=== PATIENT | female | born 1980 | race Caucasian/White ===

== ENCOUNTER 2025-11-02 08:52 | Outpatient (REF) | payer OTHER, SELFPAY ==
[2025-11-02 11:25] LABS: MANUAL DIFF FLAG NO
[2025-11-02 11:42] LABS: Hematocrit 42.5 % (37.0-47.0); Hemoglobin 13.2 g/dl (12.0-16.0); Imm Gran Abs Auto 0.02 X10*3/uL (0.00-0.03); Imm Gran Pct Auto 0.3 % (0.0-0.4); Lymphocytes Absolute Auto 1.5 X10*3/uL (1.2-4.9); Mean Corpuscular HGB Conc 31.1 g/dl (31.0-35.0); Mean Corpuscular Hemoglobin 24.8 pg (27.0-33.0); Mean Corpuscular Volume 79.9 fL (80.0-98.0); NRBC Abs Auto 0.000 X10*3/uL (0.0-0.012); NRBC Pct Auto 0.0 /100WBC (0.0-0.2); Platelet Count 352 X10*3/uL (160-400); Red Blood Count 5.32 X10*6/uL (4.20-5.50); White Blood Count 6.4 X10*3/uL (4.8-10.8)
[2025-11-02 12:26] LABS: Alanine Aminotransferase 24 U/L (0-31); Albumin Level 4.4 g/dL (3.5-5.0); Alkaline Phosphatase 88 U/L (39-117); Anion Gap 11 (12-20); Aspartate Amino Transferase 24 U/L (5-31); Blood Urea Nitrogen 12 mg/dL (9-16); Calcium 8.9 mg/dL (8.4-10.2); Carbon Dioxide 26 mmol/L (22-29); Chloride 108 mmol/L (96-108); Cholesterol 175 mg/dL (<200); Estimated Glomerular Filt Rate > 60; HDL Cholesterol 60 mg/dL (>40); Potassium 4.5 mmol/L (3.3-5.1); Sodium 140 mmol/L (135-145); Total Protein 7.5 g/dL (6.5-8.0); Triglycerides 65 mg/dL (<150)
== END 2025-11-02 08:53 | disposition home or self-care (01) ==
LOC: HO.HHCL 08:52
PROVIDERS: PCP Internal Medicine Geriatric Medicine; Visit Provider Internal Medicine Geriatric Medicine
DX: R53.83 Other fatigue (principal); Z13.1 Encounter for screening for diabetes mellitus; Z13.220 Encounter for screening for lipoid disorders
CPT/HCPCS: 36415; 80053; 80061; 82306; 84443; 85025

== ENCOUNTER 2025-11-27 11:28 | Outpatient (REF) | payer OTHER, SELFPAY ==
--- NOTE | ~2025-11-27 | XR_ITS ---
EXAMINATION: XR CALCANEUS, LEFT CLINICAL INFORMATION: Left heel pain x1 month, atraumatic. COMPARISON: None available. TECHNIQUE: Lateral and axial views of the left calcaneus were obtained. FINDINGS: No fracture, dislocation, or suspicious bone lesion. Calcaneus is intact. The subtalar joints are normal in appearance. There is a small dorsal calcaneal spur. There are no soft tissue abnormalities. XR/XR calcaneus LT min 2V IMPRESSION: No acute findings left calcaneus. Small dorsal spur. Electronically signed by: Sebastian Skinner MD 11/27/2025 01:14 PM [facility]
--- OUTSIDE RECORDS SUMMARY | 2025-11-27 10:00 | XMS_ITS | Encounter Summary ---
Author Organization [employer] Address [address] [place] [address] 7 [place] [address] Care Team Providers Care Pipe Organ Builder Name Role Phone Name, Kashmir MIR Primary Care Provider [phone] Reason for Referral * Consultation (Routine) - Pending Review Specialty Diagnoses / Procedures Referred By Trey walters Referred To Contact Orthopaedic Surgery Diagnoses Pain of left heel Tera Snyder MD [address] [place] [address] Phone: tel: fax: Referral ID Status Reason Start Date Expiration Date Visits Requested Visits Authorized [id number] Pending Review Specialty Services Required 11/27/2026 1 1 Reason for Visit * Reason Comments Earache Encounter Details Date Type Department Care Team (Late st Contact Info) Description 11/27/2025 10:00 AM EST Office Visit [facility] [address] [place], [place] [id number] Impacted cerumen of right ear (Primary Dx); Elevated blood pressure reading in office without diagnosis of hypertension; Pain of left heel Social History Tobacco Use Types Packs/Day Years Used Date Smoking Tobacco: Never Passive Smoke Exposure: Never Smokeless Tobacco: Never Tobacco Cessation:Counseling Given: Not Answered Alcohol Answer Date Recorded How often do you have a drink containing alcohol ? 0 11/01/2025 Average Number of Drinks Not on file 025 How often do you have six or more drinks on one occasion? 0 11/01/2025 Depression Answer Date Recorded Patient Health Questionnaire-9 Score 3 11/01/2025 Patient Health Questionnaire-9 Score 3 11/01/2025 Last PHQ-9: Questionnaire Data Not on file 1 01/02/2025 Housing Stability Answer Date Recorded What is your housing situation today? I have housing today, but I am worried about losing housing in the future 11/01/[address] you li ve. Do you have problems with any of the following? None of the above 11/01/2025 Food Insecurity Answer Date Recorded Within the past 12 months, y ou worried that your food would run out before you got money to buy more: Sometimes True 2024 Within the past 12 months,th e food you bought just didn't last and you didn't have enough money to get more: Sometimes True 11/01/2025 Transportation Answer Date Recorded In the past 12 months, has l ack of transportation kept you from medical appts, meetings, work or from getting things needed for daily living? No 11/01/2025 Utilities Answer Date Recorded In the past 12 months, has t he electric, gas, oil or water company threatened to shut off services in your home? No 11/01/2025 Depression Answer Date Recorded Patient Health Questionnaire-2 Score 1 11/01/2025 Internet Access Answer Date Recorded Internet Access Q1 No 11/01/2025 Internet Access Q2 I cannot afford it 11/01/2025 Comments Unknown Sex and Gender Information Value Date Recorded Sex Assigned at Female 08/14/2025 12:02 PM EDT Legal Sex Female 2:00 PM EDT Gender Identity Female 08/14/2025 12:02 PM EDT Sexual Orientation Straight 08/14/2025 12 :02 PM EDT documented as of this encounter Last Filed Vital Signs Vital Sign Reading Time Taken Comments Blood Pressure 141/96 11/27/2025 10:05 AM EST Pulse 87 11/27/2025 10:05 AM EST Temperature 36.6 C (97.9 F) 11/27/2025 10:05 AM EST Respiratory Rate 16 11/27/2025 10:05 AM EST Oxygen Saturation 100% 11/27/2025 10:05 AM EST Inhaled Oxygen Concentration - - Weight 81.2 kg (179 lb) 11/27/2025 10:05 AM EST Height - - Body Mass Index 31.52 11/01/2025 10:51 AM EST documented in this encounter Plan of Treatment Upcoming Encounters Date Type Department Care Team (Late st Contact Info) Description 12/07/2025 9:30 AM EST Clinical Support [facility] [address] [place] [address] Scheduled Orders Name Type Priority Associated Diagnoses Orde r Schedule XR heel LT min 2V Imaging Routine Pain of left heel Expected: 11/27/2025, Expires: 11/27/2026 Ear Cerumen Removal Procedures Routine Impacted cerumen of right ear Ordered: 11/27/2025 Scheduled Referrals Name Type Priority Associated Diagnoses Order Schedule Referral to Orthopaedic Surgery Outpatient Referral Routine Pain of left heel Expected: 11/27/2025 (Approximate), Expires: 11/27/2026 documented as of this encounter Visit Diagnoses Diagnosis Impacted cerumen of right ear- Primary Impacted cerumen Elevated blood pressure reading in office without diagnosis of hypertension Pain of left heel documented in this encounter Additional Health Concerns Assessment Noted Time PHQ-9 Depression Total Score: 3 11/01/20 11:01 AM EST documented as of this encounter Care Teams Pipe Organ Builder Relationship Specialty Start Date End Date Name, MD Kashmir [address] [place] [address] PCP - General Internal Medicine 10/20/25 documented as of this encounter
--- OUTSIDE RECORDS SUMMARY | 2025-11-27 15:33 | XMS_ITS | Encounter Summary ---
Author Organization [employer] Address [address] [facility] [address] [place] [address] Care Team Providers Care Photography Manager Name Role Phone Name, Kashmir MIR Primary Care Provider [phone] Encounter Details Date Type Department Care Team ([facility] st Contact Info) Description 11/27/2025 Orders Only [facility] [address] [place] [address] Tera Mo MD [address] [place] [address] Social History Tobacco Use Types Packs/Day Years Used Date Smoking Tobacco: Never Passive Smoke Exposure: Never Smokeless Tobacco: Never Alcohol Answer Date Recorded How often do [...] PM EDT documented as of this encounter Plan of Treatment Upcoming Encounters Date Type Department Care Team (Late st Contact Info) Description 12/07/2025 9:30 AM EST Clinical Support [facility] [address] [place] [phone] documented as of this encounter Procedures Procedure Name Priority Date/Time Associated Diagnosis Comments XR CALCANEUS 2 VIEWS LEFT Routine 11/27/2025 12:09 PM EST documented in this encounter Results * XR Calcaneus 2 Views Left (11/27/2025 12:09 PM EST) Anatomical Region Laterality Modality Lower Extremities, Calcaneus Left Rad iographic Imaging 11/27/2025 12:0 9 PM EST Narrative 11/27/2025 1:17 PM EST [address] [address] XRay Report Signed Patient: Ayleen Wilson MR #: [id number] : 1980 Acct:[id number] Age/Sex: 45 / F ADM Date: 11/27/25 [facility] Att[facility] Dr: Tera Mo MD Ordering Physician: TERA MO MD Date of Service: 11/27/25 Procedure(s): XR calcaneus LT min 2V Accession Number(s): [id number] cc: TERA MO MD; Name,Kashmir MIR Reason for Exam: PAIN EXAMINATION: XR CALCANEUS, LEFT CLINICAL INFORMATION: Left heel pain x1 month, atraumatic. COMPARISON: None available. TECHNIQUE: Lateral and axial views of the left calcaneus were obtained. FINDINGS: No fracture, dislocation, or suspicious bone lesion. Calcaneus is intact. The subtalar joints are normal in appearance. There is a small dorsal calcaneal spur. There are no soft tissue abnormalities. XR/XR calcaneus LT min 2V IMPRESSION: No acute findings left calcaneus. Small dorsal spur. Electronically signed by: Sebastian Skinner MD 11/27/2025 01:14 PM [facility] Dictated By: Sebastian Skinner MD Signed By: <Electronically signed by Sebastian Skinner MD in OV> 11/27/25 1314 DD/ 1209 TD/TT: 11/27/25 1215 Mining Machinery Assembler: Procedure Note Donotuseinterpreter, Image - 11/27/2025 [place] [address] XRay Report Signed Patient: Ayleen WilsonMR #: [id number] : 1980Acct:[id number] Age/Sex: 45 / FADM Date: 11/27/25 Loc: HO.[facility] Attending Dr: Tera Mo MD Ordering Physician: TERA MO MD Date of Service: 11/27/25 Procedure(s): XR calcaneus LT min 2V Accession Number(s): [id number] cc: TERA MO MD; Name,Kashmir MIR Reason for Exam: PAIN EXAMINATION: XR CALCANEUS, LEFT CLINICAL INFORMATION: Left heel pain x1 month, atraumatic. COMPARISON: None available. TECHNIQUE: Lateral and axial views of the left calcaneus were obtained. FINDINGS: No fracture, dislocation, or suspicious bone lesion. Calcaneus is intact. The subtalar joints are normal in appearance. There is a small dorsal calcaneal spur. There are no soft tissue abnormalities. XR/XR calcaneus LT min 2V IMPRESSION: No acute findings left calcaneus. Small dorsal spur. Electronically signed by: Sebastian Skinner MD 11/27/2025 01:14 PM EST Dictated By: Sebastian Skinner MD Signed By: <Electronically signed by Sebastian Skinner MD in OV> 11/27/25 1314 DD/ 1209 TD/TT: 11/27/25 1215 Mining Machinery Assembler: Tera Mo MD IMG XR PROCEDURES Final Result documented in this encounter Visit Diagnoses Not on filedocumented in this encounter Additional Health Concerns Assessment Noted Time PHQ-9 Depression Total Score: 3 11/01/20 25 11:01 AM EST documented as of this encounter Care Teams Photography Manager Relationship Specialty Start Date End Date Name, MD Kashmir [address] [place] [id number] PCP - General Internal Medicine 10/20/25 documented as of this encounter
--- OUTSIDE RECORDS SUMMARY | 2025-11-27 15:33 | XMS_ITS | Clinical Summary ---
Author Organization [employer] Address [address] [place] [address] 7 [place] [address] Care Team Providers Care Tar Roofer Name Role Phone Name, Kashmir MIR Primary Care Provider [phone] Allergies Active Allergy Reactions Criticality Noted Date Comments Ciprofloxacin 11/01/2025 tachycardia Cefadroxil 11/01/2025 rash Medications naproxen (Naprosyn) 500 MG tablet Take 1 tablet (500 mg) by mouth if needed in the morning and at bedtime for mild pain. 60 tablet 11/02/2025 9:18 AM EST 5 12/02/19 26 Active acetaminophen (Tylenol) 500 MG tablet Take 2 tablets (1,000 mg) by mouth every 6 (six) hours if needed for moderate pain or fever for up to 25 doses. 50 tablet 11/27/2025 12:49 PM EST 5 Active ibuprofen 400 MG tablet Take 1 tablet (400 mg) by mouth every 6 (six) hours if needed for moderate pain or fever for up to 30 doses. 30 tablet 11/27/2025 12:49 PM EST 5 Active Blood Pressure kit 1 each 2 times daily. 1 kit 5 11/27/20 26 Active carbamide peroxide (Debrox) 6.5 % otic solution Administer 5 drops into the right ear 2 times daily for 4 days. 15 mL 11/27/2025 12:49 PM EST 5 12/27/19 26 Active Active Problems No known active problems Encounters Date Type Department Care Team Description 11/27/2025 10:00 AM EST Office Visit [facility] [address] [place] [address] Impacted cerumen of right ear (Primary Dx); Elevated blood pressure reading in office without diagnosis of hypertension; Pain of left heel 11/27/2025 Orders Only [facility] [address] [place] [address] Tera Mo MD 11/27/2025 Travel 11/19/[address] [address] Kashmir Cordova MD Referral 11/01/2025 10:45 AM EST Office Visit [address] [address] Kashmir Cordova MD Lack of energy (Primary Dx); Chronic bilateral low back pain without sciatica; Screening for cervical cancer; History of abnormal cervical Pap smear; History of myomectomy; Screening for diabetes mellitus; Screening for cholesterol level; Encounter for screening for malignant neoplasm of breast, unspecified screening modality; Screening for colon cancer 11/01/[address] [address] Kashmir Cordova MD REQUEST [facility] FOR EYE EXAM 11/01/2025 Travel 10/30/[address] [address] Kashmir Cordova MD Chart Prep 10/22/2025 Patient Outreach [facility] [address] [place], [place] [phone] Kashmir Cordova MD Pre-visit Planning ([facility] unable to reach [facility]) from Last 3 Months Immunizations Immunization Administration Dates Next Due Tdap 11/01/2025 Family History Medical History Relation Name Comments back pain Brother No Known Problems Father No Known Problems Mother No Known Problems Sister Relation Name Status Comments Brother Father Mother Sister Social History Tobacco Use Types Packs/Day Years [...] Orientation Straight 08/14/2025 12 :02 PM EDT Last Filed Vital Signs Vital Sign Reading Time Taken Comments Blood Pressure 141/96 11/27/2025 10:05 AM EST Pulse 87 11/27/2025 10:05 AM EST Temperature 36.6 C (97.9 F) 11/27/2025 10:05 AM EST Respiratory Rate 16 11/27/2025 10:05 AM EST Oxygen Saturation 100% 11/27/2025 10:05 AM EST Inhaled Oxygen Concentration - - Weight 81.2 kg (179 lb) 11/27/2025 10:05 AM EST Height 160.5 cm (5' 3.19 ) 11/01/2025 10:[address] Body Mass Index 31.52 11/01/2025 10:51 AM EST Plan of Treatment Upcoming Encounters Date Type Department Care Team (Late st Contact Info) Description 12/07/2025 9:30 AM EST Clinical Support [facility] [address] [place] [address] Health Maintenance Due Date Last Done Comments CT Colonography 1980 Colonoscopy 1980 FIT 1980 HIV Screening 1980 Sigmoidoscopy 1980 Family Planning (PISQ) 02/19/1995 HPV Vaccines (1 - 3-dose series) 02/19/1995 Hepatitis C Screening 02/19/1998 Hepatitis B Vaccines (1 of 3 - 19+ 3-dose series) 02/19/1999 Pap Smear 02/19/2001 Cervical Cancer Screening 02/19/2010 HPV/Cotest 02/19/2010 Mammogram 2020 COVID-19 Vaccine ( - 2024-2 6 season) 2025 Influenza Vaccine (#1) 2025 01/27/2025 Alcohol/Substance Use Screening 11/01/2026 11/01/2025 Depression Screening 11/01/2026 11/01/2025, 11/01/2025 Disability Screening 11/01/2026 11/01/2025 SDOH Screening 11/01/2026 11/01/2025 FOBT 11/12/2026 11/12/2025 Tobacco Screening 11/27/2026 11/27/2025 Colorectal Cancer Screening 11/12/2028 FIT DNA/Cologuard 11/12/2028 11/12/2025 Zoster Vaccines (1 of 2) 02/19/2030 DTaP/Tdap/Td Vaccines (2 - T d or Tdap) 11/01/2035 11/01/2025 RSV Patients and Patients Aged 60 years or older (1 - 1-dose 75+ series) 02/19/2055 HIB Vaccines Aged Out No longer eligi ble based on patient's age to complete this topic Hepatitis A Vaccines Aged Out No long er eligible based on patient's age to complete this topic IPV Vaccines Aged Out No longer eligi ble based on patient's age to complete this topic Meningococcal B Vaccine Aged Out No l onger eligible based on patient's age to complete this topic Meningococcal Vaccine Aged Out No diamante malinda eligible based on patient's age to complete this topic Pneumococcal Vaccine: Pediatrics (0 to 5 Years) and At-Risk Patients (6 to 49) Years Aged Out No longer eligible b ased on patient's age to complete this topic RSV under 20 months Aged Out No longe r eligible based on patient's age to complete this topic Rotavirus Vaccines Aged Out No longer eligible based on patient's age to complete this topic Procedures Procedure Name Priority Date/Time Associated Diagnosis Comments XR CALCANEUS 2 VIEWS LEFT Routine 11/27/2025 12:09 PM EST LAB COLOGUARD COLON CANCER SCREEN Routine 11/12/2025 10:25 AM EST Screening for colon cancer VITAMIN D,25-OH,TOTAL,IA Routine 11/02/2025 9:00 AM EST Lack of energy TSH W/REFLEX TO FT4 Routine 11/02/2025 9 :00 AM EST Lack of energy LIPID PANEL, STANDARD Routine 11/02/2025 9:00 AM EST Screening for cholesterol level COMPREHENSIVE METABOLIC PANEL Routine 11/02/2025 9:00 AM EST Screening for diabetes mellitus Lack of energy CBC WITH AUTO DIFFERENTIAL Routine 11/02/2025 9:00 AM EST Lack of energy from Last 3 Months Results * XR Calcaneus 2 Views Left (11/27/2025 12:09 PM EST) Anatomical Region Laterality Modality Lower Extremities, Calcaneus Left Rad iographic Imaging 11/27/2025 12:0 9 PM EST Narrative 11/27/2025 1:17 PM EST [address] [place] [address] XRay Report Signed Patient: Ayleen Yu MR #: [id number] : 1980 Acct:[id number] Age/Sex: 45 / F ADM Date: 11/27/25 Loc: [facility]HCX Attending Dr: Tera Mo MD Ordering Physician: TERA MO MD Date of Service: 11/27/25 Procedure(s): XR calcaneus LT min 2V Accession Number(s): [id number] cc: TERA MO MD; Name,Kashmir MIR Reason [...] by: Sebastian Skinner MD 11/27/2025 01:[address] [facility] Dictated By: Sebastian Skinner MD Signed By: <Electronically signed by Sebastian Skinner MD in OV> 11/27/25 1314 DD/ 1209 TD/TT: 11/27/25 1215 Mirror Silverer: Procedure Note Donotuseinterpreter, Image - 11/27/2025 [place] [address] XRay Report Signed Patient: Ayleen YuMR #: [id number] : 1980Acct:[id number] Age/Sex: 45 / FADM Date: 11/27/25 Loc: [facility].HHCX Attending Dr: Tera Mo MD Ordering Physician: TERA MO MD Date of Service: 11/27/25 Procedure(s): XR calcaneus LT min 2V Accession Number(s): [id number] cc: TERA MO MD; Name,Kashmir MIR Reason [...] MD 11/27/2025 01:14 PM EST Dictated By: Sebastain Skinner MD Signed By: <Electronically signed by Sebastian Skinner MD in OV> 11/27/25 1314 DD/ 1209 TD/TT: 11/27/25 1215 Mirror Silverer: Tera Mo MD IMG XR PROCEDURES Final Result * Cologuard?? colon cancer screening (11/12/2025 10:25 AM EST) Cologuard Result Negative Negative 11/17/20 11:54 AM EST [facility] (CLIA #:[id number]) Comment: The Cologuard (TM) test was performed on this specimen. NEGATIVE TEST RESULT. A negative Cologuard result indicates a low likelihood that a colorectal cancer (CRC) or advanced adenoma (adenomatous polyps with more advanced pre-malignant features) is present. The chance that a person with a negative Cologuard test has a colorectal cancer is less than 1 in 1500 (negative predictive value >99.9%) or has an advanced adenoma is less than 5.3% (negative predictive value 94.7%). These data are based on a prospective cross-sectional study of 10,000 individuals at average risk for colorectal cancer who were screened with both Cologuard and colonoscopy. (Cindi Valenzuela et al, N Engl J Med 2014;370(14):1286- 1297) The normal value (reference range) for this assay is negative. COLOGUARD RE-SCREENING RECOMMENDATION: Periodic colorectal cancer screening is an important part of preventive healthcare for asymptomatic individuals at average risk for colorectal cancer. Following a negative Cologuard result, the [place] [employer] and U.S. Multi-Society Task Force screening guidelines recommend a Cologuard re-screening interval of 3 years. References: [place] [employer] Guideline for Colorectal Cancer Screening: https://www.cancer.org/cancer/liede-vcdera-trfivp/tobimexjw-hzcqjdsiq-dypxjiv/ac s-rec ommendations.html.; Malcolm GHOTRA, Danyell MADRID, Tomas XIAO, Colorectal Cancer Screening: Recommendations for Physicians and Patients from the U.S. Multi-Society Task Force on Colorectal Cancer Screening , Am J Gastroenterology 2017; 112:4712-6071. TEST DESCRIPTION: Composite algorithmic analysis of stool DNA-biomarkers with hemoglobin immunoassay. Quantitative values of individual biomarkers are not reportable and are not associated with individual biomarker result reference ranges. Cologuard is intended for colorectal cancer screening of adults of either sex, 45 years or older, who are at average-risk for colorectal cancer (CRC). Cologuard has been approved for use by the U.S. FDA. The performance of Cologuard was established in a cross sectional study of average-risk adults aged 50-84. Cologuard performance in patients ages 45 to 49 years was estimated by sub-group analysis of near-age groups. Colonoscopies performed for a positive result may find as the most clinically significant lesion: colorectal cancer [4.0%], advanced adenoma (including sessile serrated polyps greater than or equal to 1cm diameter) [20%] or non- advanced adenoma [31%]; or no colorectal neoplasia [45%]. These estimates are derived from a prospective cross-sectional screening study of 10,000 individuals at average risk for colorectal cancer who were screened with both Cologuard and colonoscopy. (Cindi Ayala al, N Engl J Med 2014;370(14):1641-8954.) Cologuard may produce a false negative or false positive result (no colorectal cancer or precancerous polyp present at colonoscopy follow up). A negative Cologuard test result does not guarantee the absence of CRC or advanced adenoma (pre-cancer). The current Cologuard screening interval is every 3 years. ([place] [employer] and U.S. Multi-Society Task Force). Cologuard performance data in a 10,000 patient pivotal study using colonoscopy as the reference method can be accessed at the following location: www.exactlabs.com/results. Additional description of the Cologuard test process, warnings and precautions can be found at www.cologuard.com. Stool specimen (specimen) 11/12/2025 10:25 AM EST 11/13/2025 9:19 AM EST us Kashmir Cordova MD LAB MOLECULAR DIAGNOSTICS ORDERA BLES Final Result [facility] (CLIA #:[id number]) [address] [place] [address], * (ABNORMAL) Vitamin D, 25-Hydroxy, Total, Immunoassay (11/02/2025 9:00 AM EST) Vitamin D 25-OH Total 25.8(L) >30 ng/mL [facility] Comment: Health Based Reference Values*< 20 ng/mL Ytfjwtywj39-26 ng/mL Insufficient> 30 ng/mL Sufficient*Ric WARD. N Engl J Med. 2007;357:266-280There is no well-established upper level of normal vitamin Dlevels. Some laboratories use 50 ng/mL as an upper limit ofnormal. However, toxicity is patient-dependent and may occurat any level. Careful correlation with the patient'spresentation is necessary and, if there is concern forvitamin D toxicity, treatment should be consideredirrespective of the serum level.Care must be taken in interpreting Vitamin D results fromdifferent laboratories and methodologies. Published datademonstrated that results from patients undergoinghemodialysis may show a negative bias when tested withvarious automated 25-OH vitamin D assays when compared toLC-MS/MS.When testing samples from patients whose predominant form ofVitamin D is Vitamin D2, such as patients receiving VitaminD2 supplementation, results that are subtherapeutic shouldbe confirmed with another method such as LC-MS/MS. Blood Venous blood specimen / Unknown 11/02/2025 9:00 AM EST 11/02/2025 11:12 AM EST us Kashmir Cordova MD LAB BLOOD ORDERABLES Final Resul t Performing Organization Address City/[facility]/ZIP Co de Phone Number [facility] [address] [place] [address] [phone] * TSH W/Reflex to FT4 (11/02/2025 9:00 AM EST) Pathologist [facility] [place] TSH reflex Free T4 1.31 0.32 - 4.0 uIU/mL [facility] Blood Venous blood specimen / Unknown 11/02/2025 9:00 AM EST 11/02/2025 11:12 AM EST us Kashmir Name LAB BLOOD ORDERABLES Final Resul t Performing Organization Address [facility] Co de Phone Number [facility] [address] [place] [phone] * (ABNORMAL) CBC auto differential (11/02/2025 9:00 AM EST) [facility] White Blood Count 6.4 4.8 - 10.8 X10*3/uL [facility] Red Blood Count 5.32 4.20 - 5.50 X10*6/uL [facility] Hemoglobin 13.2 12.0 - 16.0 g/dl [facility] Hematocrit 42.5 37.0 - 47.0 % [facility] Mean Corpuscular Volume 79.9(L) 80.0 - 98.0 fL [facility] Mean Corpuscular Hemoglobin 24.8(L) 27.0 - 33.0 pg [facility] Mean Corpuscular HGB Conc 31.1 31.0 - 35.0 g/dl [facility] Red Cell Distribution Width 14.3 11.0 - 16.0 % [facility] Platelet Count 352 160 - 400 X10*3/uL [facility] Mean Platelet Volume 10.4 9.4 - 12.3 fL [facility] Neutrophils Percent Auto 65.9 45 - 73 % [facility] Imm Gran Pct Auto 0.3 0.0 - 0.4 % [facility] Lymphocytes Percent Auto 23.7 20 - 40 % [facility] Monocytes Percent Auto 7.5 2 - 11 % [facility] Eosinophils Percent Auto 2.0 0 - 4 % [facility] Basophils Percent Auto 0.6 0 - 2 % [facility] NRBC Pct Auto 0.0 0.0 - 0.2 /100WBC [facility] Neutrophils Absolute Auto 4.2 2.0 - 8.3 x10*3/uL [facility] Imm Gran Abs Auto 0.02 0.00 - 0.03 X10*3/uL [facility] Lymphocytes Absolute Auto 1.5 1.2 - 4.9 X10*3/uL [facility] Monocytes Absolute Auto 0.5 0.1 - 1.2 X10*3/uL [facility] Eosinophils Absolute Auto 0.1 0.0 - 0.4 X10*3/uL [facility] Basophils Absolute Auto 0.0 0.0 - 0.2 X10*3/uL [facility] NRBC Abs Auto 0.000 0.0 - 0.012 X10*3/uL [facility] Blood Venous blood specimen / Unknown 11/02/2025 9:00 AM EST 11/02/2025 11:12 AM EST us Kashmir Name LAB BLOOD ORDERABLES Final Resul t [facility] [address], [place] [phone] * (ABNORMAL) Lipid Panel, Standard (11/02/2025 9:00 AM EST) Triglycerides 65 <150 mg/dL [facility] Comment:Desirable Triglyceri de: less than 150 mg/dLBorderline High Triglyceride 150-199 mg/dLHigh Triglyceride: 200-499 mg/dLVery High Triglyceride: greater than or equal to 5OO mg/dL Cholesterol 175 <200 mg/dL [facility] Comment:Desirable Cholestero l: less than 200 mg/dLBorderline High Cholesterol: 200-239 mg/dLHigh Cholesterol: greater than 239 mg/dL LDL Cholesterol Calculated 102(H) <100 mg/dL [facility] Comment:Desirable LDL: less than 100 mg/dLNear Optimal/Above Optimal LDL: 110- 129 mg/dLBorderline High LDL: 130-159 mg/dLHigh LDL: 160-189 mg/dLVery High LDL: greater than or equal to 190 mg/dL HDL Cholesterol 60 >40 mg/dL [facility] Comment:Desirable HDL: great er than 40 mg/dL Note: This HDL assay may give artificially low results in patients with liver disease. Blood Venous blood specimen / Unknown 11/02/2025 9:00 AM EST 11/02/2025 11:12 AM EST us Kashmir Cordova MD LAB BLOOD ORDERABLES Final Resul t [facility] [address], [place] [phone] * (ABNORMAL) Comprehensive Metabolic Panel (11/02/2025 9:00 AM EST) Sodium 140 135 - 145 mmol/L [facility] Potassium 4.5 3.3 - 5.1 mmol/L [facility] Chloride 108 96 - 108 mmol/L [facility] Carbon Dioxide 26 22 - 29 mmol/L [facility] Anion Gap 11(L) 12 - 20 [facility] Urea Nitrogen (BUN) 12 9 - 16 mg/dL [facility] Creatinine, Serum 0.76 0.5 - 1.4 mg/dL [facility] Estimated Glomerular Filt Rate >60 [facility] Comment:Chronic Kidney Disea se: Estimated GFR < 60 mL/min/1.04p0Rfnnce Kidney Disease: Estimated GFR < 15 mL/min/1.73m2 Glucose 80 60 - 115 mg/dL [facility] Calcium 8.9 8.4 - 10.2 mg/dL [facility] Bilirubin, Total 0.5 0.0 - 1.0 mg/dL [facility] Aspartate Amino Transferase 24 5 - 31 U/L [facility] Alanine Aminotransferase 24 0 - 31 U/L [facility] Total Protein 7.5 6.5 - 8.0 g/dL [facility] Albumin Level 4.4 3.5 - 5.0 g/dL [facility] Alkaline Phosphatase 88 39 - 117 U/L [facility] Blood Venous blood specimen / Unknown 11/02/2025 9:00 AM EST 11/02/2025 11:12 AM EST us Kashmir Name LAB BLOOD ORDERABLES Final Resul t [facility] [address] [place] [address] [phone] from Last 3 Months Insurance [facility] [employer] [place] 2 Care Teams Tar Roofer Relationship Specialty Start Date End Date Name, MD Kashmir [address] [place] [address] PCP - General Internal Medicine 10/20/25
--- OUTSIDE RECORDS SUMMARY | 2025-11-27 15:33 | XMS_ITS | Encounter Summary ---
Author Organization [employer] Address [address] [place] [address] Care Team Providers Care Lens Engraver Name Role Phone Name, Kashmir MIR Primary Care Provider [phone] Encounter Details Date Type Department Care Team (Latest Contact Info) Description 11/27/2025 Travel Social History Tobacco Use Types Packs/Day Years [...] Description 12/07/2025 9:30 AM EST Clinical Support [facility] [address] [place] [address] documented as of this encounter Visit Diagnoses Not on filedocumented in this encounter Additional Health Concerns Assessment Noted Time PHQ-9 Depression Total Score: 3 11/01/20 11:01 AM EST documented as of this encounter Care Teams Lens Engraver Relationship Specialty Start Date End Date Name, MD Kashmir [address] [place] [address] PCP - General Internal Medicine 10/20/25 documented as of this encounter
== END 2025-11-27 11:29 | disposition home or self-care (01) ==
LOC: HO.HHCX 11:28
PROVIDERS: PCP Internal Medicine Geriatric Medicine; Visit Provider Emergency Medicine
DX: M79.672 Pain in left foot (principal)
CPT/HCPCS: 73650

== ENCOUNTER → 2025-11-27 12:09 | Outpatient (BNV) | payer OTHER, SELFPAY | PROVIDERS: PCP Internal Medicine Geriatric Medicine; Visit Provider Radiology Diagnostic Radiology | DX: M77.52 Other enthesopathy of left foot and ankle (principal) | CPT/HCPCS: 73650 ==